=== PATIENT | male | born 1940 | race Caucasian/White ===

== ENCOUNTER 2020-07-05 08:02 | Inpatient (IN) | payer MEDICARE ==
[~2020-07-05 08:02] MED LIST: ASPIR 8181 MG PO; CITALOPRAM 40MG40 MG PO; COZAAR 25MG TAB25 MG PO; HUMALOG 75100 UNIT/M SC; ISOSORBIDE MONO60 MG PO; LAMICTAL100 MG PO; LANTUS **100 UNITS/ SC; LOVAZA1 GM PO; MACROBID100 MG PO; METFORMIN HCL500 MG PO; MOBIC7.5 MG PO; TYLENOL PM EX-1 EACH PO; VOLTAREN **OUT75 MG PO
[2020-07-05 08:36] LABS: BASOPHIL 0.1 % (0-2); EOSINOPHIL 0 % (0-7); HCT 36.9 % (42.0-52.0); HGB 12.5 g/dl (13.2-18.0); LYMPHOCYTE 10.9 % (15-48); MCHC 33.9 g/dL (32.0-36.0); MCV 97.4 fL (78.0-100.0); MONOCYTE 6.5 % (0-12); MPV 11.1 fL (6.0-9.5); NEUTROPHIL 82.1 % (41-80); NRBC 0; PLT 177 K/uL (150-400); RBC 3.79 M/uL (4.70-6.00); RDW 12.6 % (11.5-14.0); WBC 12.5 K/uL (4.0-10.5)
[2020-07-05 08:50] LABS: INR 1.06 (0.9-1.2); PROTHROMBIN TIME 13.1 SECONDS (11.4-13.6); PTT 31.3 SECONDS (22.2-34.7)
[2020-07-05 08:52] LABS: D-DIMER 3.29 ug/mLFEU (0.00-0.41)
[2020-07-05 08:52] LABS: BILIRUBIN NEGATIVE (NEGATIVE); BLOOD 3+ Ery/uL (NEGATIVE); COLOR YELLOW (YELLOW); GLUCOSE (U) NORMAL (NORMAL); LEUKOCYTES 2+ Leu/uL (NEGATIVE); NITRITE POSITIVE (NEGATIVE); PROTEIN 2+ mg/dL (NEGATIVE); SPECIFIC GRAVITY >=1.030 (1.001-1.030)
[2020-07-05 08:53] LABS: CLARITY CLOUDY (CLEAR)
[2020-07-05 08:59] LABS: URINARY WBC TNTC
[2020-07-05 09:00] LABS: BACTERIA 4+; URINARY RBC 20-50
[2020-07-05 09:06] LABS: BILIRUBIN - TOTAL 1.6 mg/dL (0.2-1.0); BUN/CREAT RATIO (CALC) 39.7 RATIO; CREATININE 0.78 mg/dL (0.67-1.17); GLOBULIN (CALCULATION) 3.4 g/dL; MAGNESIUM 1.8 mg/dL (1.8-2.4); POTASSIUM 3.4 mmol/L (3.5-5.1); TOTAL PROTEIN 6.4 g/dL (6.4-8.2)
[2020-07-05 09:16] LABS: LACTIC ACID 1.7 mmol/L (0.4-1.9)
[2020-07-05 09:54] LABS: CORONAVIRUS 2019 SARS-COV-2 NEGATIVE (NEGATIVE); INFLUENZA A NAA NEGATIVE (NEGATIVE)
--- NOTE | 2020-07-05 14:26 | NUR ---
REPORT RECIEVED FROM RUBENS SILVA IN ER. PT CAME UP VIA STRECTHER, REPORTED BY THAT HE WAS USING WALKER AT HOME UNTIL LAST THURSDAY. STATED THAT PT HAS BEEN IMMOBILE AND UNABLE TO WALK SINCE THEN. 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 ALSO R/T THIS DISEASE, PT HAS WEAK EYELIDS AND EYEBALLS, DROOPY EYELIDS AND NOT ABLE TO MOVE PUPILS QUICK ARE S/S. PT ALSO STATES HE HAS SEVERE LEG PAIN, LEFT GREATER THAN RIGHT. UPON ASSESSMENT PT SKIN IN GOOD CONDITION EXCEPT BOTTOM IS RED BUT BLANCHABLE. ALL EXTREMITIES ARE WEAK BUT LEFT LEG IS WEAKEST, ONLY BEING ABLE TO LIFT OFF BED ABOUT 2 INCHES. PT HAS GOOD PULSES AND GRASPS. PT STATES NAME, BIRTHDAY AND KNOWS HE IS IN [place], [place].
[2020-07-05] MEDS ORDERED: METFORMIN HCL500 MG PO (14:42)
[2020-07-05] MEDS ORDERED: BRILINTA90 MG PO (14:42)
[2020-07-05] MEDS ORDERED: ASPIRIN EC81 MG PO (14:43)
[2020-07-05] MEDS ORDERED: LOVAZA1 GM PO (14:43)
[2020-07-05] MEDS ORDERED: TYLENOL PM EX-1 EACH PO (14:43)
[2020-07-05] MEDS ORDERED: LIPITOR40 MG PO (14:44)
[2020-07-05] MEDS ORDERED: CELEXA20 MG PO (14:44)
[2020-07-05] MEDS ORDERED: COREG12.5 MG PO (14:44)
[2020-07-05] MEDS ORDERED: ENTRESTO 24 MG1 EACH PO (14:45)
[2020-07-05] MEDS ORDERED: ISOSORBIDE DINI20 M1 PO (14:46)
[2020-07-05] MEDS ORDERED: LAMICTAL100 MG PO (14:47)
[2020-07-05] MEDS ORDERED: K-DUR20 MEQ PO (14:47)
[2020-07-05] MEDS ORDERED: NEURONTIN300 MG PO (14:47)
[2020-07-05] MEDS ORDERED: NORCO 5-325 TA1 EACH PO (14:48)
[2020-07-05] MEDS ORDERED: ZANAFLEX2 MG PO (14:49)
[2020-07-05 14:50] LABS: CHOLESTEROL 132 mg/dL (<200); HDL 33 mg/dL (40-60); LDL - DIRECT 86 mg/dL (<100); TRIGLYCERIDES 97 mg/dL (<150)
[2020-07-05] MEDS ORDERED: HUMALOG 75100 UNIT/M SC (14:50)
[2020-07-05] MEDS ORDERED: LANTUS **100 UNITS/ SC (14:51)
--- NOTE | 2020-07-05 17:15 | NUR ---
REPORT GIVEN TO TINA AT [facility] [id number] EMS TOOK PT AT 1715. PT DID NOT HAVE ANY BELONGINGS TO TRANSFER.
--- NOTE | 2020-07-06 09:11 | NUR ---
07/06 Pt was transferred to [facility] on 07/05/20.
== END 2020-07-05 17:19 | disposition other institution (70) | DRG 280 ==
LOC: FER 08:02 → FTCU 11:26
PROVIDERS: Allergy & Immunology Allergy; Emergency Medicine; ADMIT Internal Medicine
DX: I11.0 Hypertensive heart disease with heart failure (principal); I21.4 Non-ST elevation (NSTEMI) myocardial infarction; J96.01 Acute respiratory failure with hypoxia; J18.9 Pneumonia, unspecified organism; N39.0 Urinary tract infection, site not specified; G25.82 Stiff-man syndrome; Z66 Do not resuscitate; I50.9 Heart failure, unspecified; E11.9 Type 2 diabetes mellitus without complications; G40.909 Epilepsy, unspecified, not intractable, without status epilepticus; I25.10 Atherosclerotic heart disease of native coronary artery without angina pectoris; G71.19 Other specified myotonic disorders; F41.9 Anxiety disorder, unspecified; F32.9 Major depressive disorder, single episode, unspecified; Z20.822 Contact with and (suspected) exposure to COVID-19; Z79.82 Long term (current) use of aspirin; Z79.4 Long term (current) use of insulin; Z95.5 Presence of coronary angioplasty implant and graft; Z88.8 Allergy status to other drugs, medicaments and biological substances; Z79.899 Other long term (current) drug therapy; Z87.891 Personal history of nicotine dependence
CPT/HCPCS: 36415; 36600; 71045; 71275; 80053; 80061; 81001; 82803; 83036; 83605; 83735; 83880; 84145; 84484; 85025; 85379; 85610; 85730; 87040; 87076; 87088; 87186; 93005; 94640; 94664; J0696; J1650; J1940; J2270; J2405; Q9967; U0002

== ENCOUNTER 2020-09-09 00:53 | Emergency (ER) | payer MEDICARE ==
[~2020-09-09 00:53] MED LIST changes: +ASPIRIN EC81 MG PO; +BRILINTA90 MG PO; +CELEXA20 MG PO; +COREG12.5 MG PO; +ENTRESTO 24 MG1 EACH PO; +ISOSORBIDE DINI20 M1 PO; +K-DUR20 MEQ PO; +LIPITOR40 MG PO; +NEURONTIN300 MG PO; +NORCO 5-325 TA1 EACH PO; +ZANAFLEX2 MG PO
== END 2020-09-09 09:10 | disposition home or self-care (01) ==
LOC: FER 00:53
DX: S31.31XA Laceration without foreign body of scrotum and testes, initial encounter (principal); Z23 Encounter for immunization; I48.91 Unspecified atrial fibrillation; E11.9 Type 2 diabetes mellitus without complications; I10 Essential (primary) hypertension; Z79.4 Long term (current) use of insulin; Z88.8 Allergy status to other drugs, medicaments and biological substances; X58.XXXA Exposure to other specified factors, initial encounter
CPT/HCPCS: 90471; 90714